=== PATIENT | male | born 1995 | race Caucasian/White ===

== ENCOUNTER 2019-12-21 05:16 | Emergency (ER) | payer BC ==
--- NOTE | 2019-12-21 06:01 | EDM.PDOC ---
ED HPI GENERAL MEDICAL PROBLEM - General Chief Complaint: ENT Problem Stated Complaint: DIFFICULTY SWALLOWING Time Seen by Provider: 12/21/19 05:51 Source of Information: Reports: Patient History Limitations: Reports: No Limitations - History of Present Illness INITIAL COMMENTS - FREE TEXT/NARRATIVE: Mr. Curiel is a pleasant 24-year-old man with no chronic medical problems and no past surgical history, who states that he woke this morning with the sensation of a lump in his throat, difficulty swallowing, and shortness of breath, following an episode of dry heaves last night. No prior similar symptoms. No recent illness, such as fever, chills, cough, chest pain, palpitations, constipation, diarrhea, or urinary symptoms. The patient did not take any [id number] home remedies prior to coming to the ED. Here in the ED, the patient's BP is found to be elevated at 181/111, and his oxygen saturation is noted to be 99-100% on room air. The patient's PCP is Digna Vasquez NP. He did not receive an influenza vaccine this season, but agreed to receive one here today. Throat Pain Score (Numeric/FACES): 5 - Related Data Allergies Allergy/AdvReac Type Severity Reaction Status Date / Time amoxicillin Allergy Cardiac Verified 12/21/19 05:30 Arrest Home Meds: Home Meds . [No Known Home Meds] 12/21/19 [History] Past Medical History - Past Health History Medical/Surgical History: Denies Medical/Surgical History Social & Family History - Tobacco Use Smoking Status *Q: Former Smoker Tobacco Use Within Last Twelve Months: Smokeless Tobacco (Quit 1 can/day sep 2019) Years of Tobacco use: 6 Packs/Tins Daily: 0.5 Month/Year Tobacco Last Used: Quit Jul 2019 - Caffeine Use Caffeine Use: Reports: Coffee - Alcohol Use Alcohol Use History: Yes Alcohol Use Frequency: Socially (occasionally to excess) - Recreational Drug Use Recreational Drug Use: Yes Drug Use in Last 12 Months: No Recreational Drug Type: Reports: Marijuana/Hashish (last smoked 2017) - Living Situation & Occupation Living situation: Reports: Single, with Family Occupation: Employed ([employer]) ED ROS ENT - Review of Systems Review Of Systems: Comprehensive ROS is negative, except as noted in HPI. ED EXAM, ENT - Physical Exam Exam: See Below Exam Limited By: No Limitations General Appearance: Alert, WD/WN, No Apparent Distress Eye Exam: Bilateral Eye: EOMI, Normal Inspection Ears: Normal External Exam, Normal Canal, Hearing Grossly Normal, Normal TMs Nose: Normal Inspection, Normal Mucousa, No Blood Mouth/Throat: Normal Inspection, Normal Gums, Normal Lips, Normal Oropharynx, Normal Teeth. No: Hoarse Voice, Pharyngeal Erythema, Throat Swelling, Tongue Swelling, Tonsillar Erythema, Tonsillar Exudates, Tonsillar Swelling, Uvular Deviation, Uvular Edema Head: Atraumatic, Normocephalic Neck: Normal Inspection, Supple, Non-Tender, Full Range of Motion. No: Lymphadenopathy (L), Lymphadenopathy (R) Course - Vital Signs Last Recorded V/S: Last Vital Signs Temp 36.2 C 12/21/19 05:27 Pulse 79 12/21/19 05:27 Resp 16 12/21/19 05:27 BP 147/89 H 12/21/19 07:07 Pulse Ox 99 12/21/19 05:27 - Orders/Labs/Meds Orders: Active Orders 24 hr Category Date Time Status Influenza Vaccine Charge [RC] .DISCHARGE Care 12/21/19 06:00 Active CULTURE STREP A CONFIRMATION [] Stat Lab 12/21/19 05:58 Results STREP SCRN A RAPID W CULT CONF [RM] Stat Lab 12/21/19 05:58 Results Meds: Medications Discontinued Medications Generic Name Dose Route Start Last Admin Trade Name Lorenzo PRN Reason Stop Dose Admin Influenza Virus Vaccine 60 mcg 12/21/19 06:15 12/21/19 06:40 Fluzone Quad [id number] Syringe IM 12/21/19 06:16 60 mcg .ONCE ONE Administration - Re-Assessments/Exams Free Text/Narrative Re-Assessment/Exam: 12/21/19 06:00 No abnormalities were found on ENT exam, however, I swabbed the patient's tonsils for strep. 12/21/19 07:08 Test results discussed with the patient. His rapid strep test has returned negative. I cannot account for the patient's symptoms, since his physical exam is completely normal. It may be due to anxiety, however, I am recommending that if his symptoms persist, that he follow-up with ENT. The patient will be given an influenza vaccine prior to discharge. Departure - Departure Time of Disposition: 07:09 Disposition: Home, Self-Care 01 Condition: Good Clinical Impression: Sensation of lump in throat - Discharge Information *PRESCRIPTION DRUG MONITORING PROGRAM REVIEWED*: Not Applicable *COPY OF PRESCRIPTION DRUG MONITORING REPORT IN PATIENT RADHA: Not Applicable Referrals: Digna Vasquez NP [Primary Care Provider] - Rashel Fleming MD [Ordering Only Provider] - Forms: ED Department Discharge Additional Instructions: You were seen in the emergency room after waking up with a sensation of a lump in her throat, difficulty swallowing, and shortness of breath, associated with dry heaves. Workup in the ER included a rapid strep test, which returned negative. You do not have strep throat. Your physical exam was unremarkable. No physical abnormalities were found. The cause of your symptoms is unclear. If your symptoms persist, we recommend that you follow-up with the ENT Dr. Rashel Fleming, in [place]. If any other problems, please do not hesitate to return to the ER. *You were given an influenza vaccine during your ER visit.* Sepsis Event Note - Evaluation Sepsis Screening Result: No Definite Risk - Focused Exam Vital Signs: Vital Signs Temp Pulse Resp BP Pulse Ox 12/21/19 07:07 147/89 H 12/21/19 05:27 36.2 C 79 16 181/111 H 99 Date Exam was Performed: 12/21/19 Time Exam was Performed: 07:08 - My Orders Last 24 Hours: My Active Orders 12/21/19 05:58 CULTURE STREP A CONFIRMATION [RM] Stat STREP SCRN A RAPID W CULT CONF [RM] Stat 12/21/19 06:00 Influenza Vaccine Charge [RC] .DISCHARGE - Assessment/Plan Last 24 Hours: My Active Orders 12/21/19 05:58 CULTURE STREP A CONFIRMATION [RM] Stat STREP SCRN A RAPID W CULT CONF [RM] Stat 12/21/19 06:00 Influenza Vaccine Charge [RC] .DISCHARGE
[2019-12-21] MEDS ORDERED: FLU Vacc QS2019-20(6MOS+)/PF 60 MCG/0.5 ML SYRINGE IM ONE (06:15)
== END 2019-12-21 07:18 | disposition home or self-care (01) ==
LOC: JD.ED 05:16
DX: R09.89 Other specified symptoms and signs involving the circulatory and respiratory systems (principal); Z23 Encounter for immunization; Z88.1 Allergy status to other antibiotic agents; Z87.891 Personal history of nicotine dependence
CPT/HCPCS: 87081; 87430; 90686; 99281; 99284-25; G0008

== ENCOUNTER 2020-02-28 17:19 | Emergency (ER) | payer BC ==
[2020-02-28] MEDS ORDERED: Diphtheria,Pertussis(Acell),Tetanus Vaccine 0.5 ML Syringe IM ONE (17:37)
[2020-02-28] MEDS ORDERED: Levofloxacin 750 MG Tab PO ONE (17:38)
--- NOTE | 2020-02-28 17:44 | EDM.PDOC ---
ED HPI GENERAL MEDICAL PROBLEM - General Chief Complaint: Lower Extremity Injury/Pain Stated Complaint: STEPPED ON A JORDAN NAIL Time Seen by Provider: 02/28/20 17:27 Source of Information: Reports: Patient, RN Notes Reviewed History Limitations: Reports: No Limitations - History of Present Illness INITIAL COMMENTS - FREE TEXT/NARRATIVE: Patient is a 24-year-old male who presents to the ED for the evaluation of stepping on a nail. Patient states that shortly prior to arrival to the ER visit, he stepped on a jordan nail while he was working in his garage. This resulted in a small puncture wound to the plantar aspect of the 1st MCP of the left foot. The patient states that he did take his boot off after he stepped on the nail, and soaked his foot with an Epsom salt bath. There is no obvious bleeding at this time. Patient and mother were not sure when his last tetanus booster was. Left Foot Pain Score (Numeric/FACES): 0 - Related Data Allergies Allergy/AdvReac Type Severity Reaction Status Date / Time amoxicillin Allergy Cardiac Verified 02/28/20 17:28 Arrest succinylcholine Allergy Cannot Verified 02/28/20 17:28 Remember Home Meds: Home Meds . [No Known Home Meds] 12/21/19 [History] Past Medical History - Past Health History Medical/Surgical History: Denies Medical/Surgical History Social & Family History - Tobacco Use Smoking Status *Q: Current Every Day Smoker Years of Tobacco use: 2 Packs/Tins Daily: 0.1 - Caffeine Use Caffeine Use: Reports: Coffee, Soda - Recreational Drug Use Recreational Drug Use: No - Living Situation & Occupation Living situation: Reports: Single, with Family Occupation: Employed ([employer]) Review of Systems - Review of Systems Review Of Systems: Comprehensive ROS is negative, except as noted in HPI. ED EXAM, GENERAL - Physical Exam Exam: See Below Exam Limited By: No Limitations General Appearance: Alert, WD/WN, No Apparent Distress Respiratory/Chest: No Respiratory Distress, Lungs Clear, Normal Breath Sounds, No Accessory Muscle Use, Chest Non-Tender Cardiovascular: Normal Peripheral Pulses, Regular Rate, Rhythm, No Murmur Peripheral Pulses: 3+: Dorsalis Pedis (L), Dorsalis Pedis (R) Extremities: Normal Range of Motion, Normal Capillary Refill Skin Exam: Warm, Dry, Normal Color, No Rash, Wound/Incision (small puncture wound to L plantar aspect of the 1st MCP, no active bleeding, it doesn't appear if the nail went in very far, no obvious foreign body is felt, the patient states that the nail was intact.) Course - Vital Signs Last Recorded V/S: Last Vital Signs Temp 98.1 F 02/28/20 17:25 Pulse 96 02/28/20 17:25 Resp 18 02/28/20 17:25 BP 163/97 H 02/28/20 17:25 Pulse Ox 95 02/28/20 17:25 - Orders/Labs/Meds Orders: Active Orders 24 hr Category Date Time Status Vaccines to be Administered [RC] PER UNIT ROUTINE Care 02/28/20 17:37 Ordered Diphth,Pertuss(Acell),Tet Vac [Adacel] Med 02/28/20 17:37 Once 0.5 ml IM .ONCE ONE levoFLOXacin [Levaquin] Med 02/28/20 17:38 Once 750 mg PO ONETIME ONE Medication Orders Diphtheria/Tetanus/Acell Pertussis (Adacel) 0.5 ml IM .ONCE ONE Stop: 02/28/20 17:38 Levofloxacin (Levaquin) 750 mg PO ONETIME ONE Stop: 02/28/20 17:39 Meds: Medications Generic Name Dose Route Start Last Admin Trade Name Freq PRN Reason Stop Dose Admin Diphtheria/Tetanus/Acell Pertussis 0.5 ml 02/28/20 17:37 Adacel IM 02/28/20 17:38 .ONCE ONE Levofloxacin 750 mg 02/28/20 17:38 Levaquin PO 02/28/20 17:39 ONETIME ONE - Re-Assessments/Exams Free Text/Narrative Re-Assessment/Exam: 02/28/20 17:43 Patient presents to the ED for the evaluation of his puncture wound. I will update his tetanus booster and start him on levofloxacin 750mg prophylaxis as the nail penetrated his cowboy boot and then punctured his foot. Departure - Departure Time of Disposition: 17:44 Disposition: Home, Self-Care 01 Condition: Good Clinical Impression: Puncture wound of skin from metal nail - Discharge Information *PRESCRIPTION DRUG MONITORING PROGRAM REVIEWED*: No *COPY OF PRESCRIPTION DRUG MONITORING REPORT IN PATIENT RADHA: No Referrals: PCP,None [Primary Care Provider] - Additional Instructions: You were evaluated in the ER today for your puncture wound in your Left foot. Your tetanus booster was updated at today's visit, and you will need to complete a course of antibiotics, and the nail went through your boot, and then punctured your foot. You have been given your first dose in the ED today, levofloxacin (Levaquin) 750mg. Dosing will be 1 tab daily x 7 days. Please keep the area clean and dry as possible to prevent further infection. Please return to the ED if your symptoms change or worsen. Sepsis Event Note - Evaluation Sepsis Screening Result: No Definite Risk - Focused Exam Vital Signs: Vital Signs Temp Pulse Resp BP Pulse Ox 02/28/20 17:25 98.1 F 96 18 163/97 H 95 Date Exam was Performed: 02/28/20 Time Exam was Performed: 17:39 - My Orders Last 24 Hours: My Active Orders 02/28/20 17:37 Vaccines to be Administered [RC] PER UNIT ROUTINE Diphth,Pertuss(Acell),Tet Vac [Adacel] 0.5 ml IM .ONCE ONE 02/28/20 17:38 levoFLOXacin [Levaquin] 750 mg PO ONETIME ONE - Assessment/Plan Last 24 Hours: My Active Orders 02/28/20 17:37 Vaccines to be Administered [RC] PER UNIT ROUTINE Diphth,Pertuss(Acell),Tet Vac [Adacel] 0.5 ml IM .ONCE ONE 02/28/20 17:38 levoFLOXacin [Levaquin] 750 mg PO ONETIME ONE
== END 2020-02-28 18:05 | disposition home or self-care (01) ==
LOC: JD.ED 17:19
DX: S91.332A Puncture wound without foreign body, left foot, initial encounter (principal); F17.210 Nicotine dependence, cigarettes, uncomplicated; Z23 Encounter for immunization; Z88.1 Allergy status to other antibiotic agents; Z88.8 Allergy status to other drugs, medicaments and biological substances; W45.0XXA Nail entering through skin, initial encounter
CPT/HCPCS: 90471; 90715; 99283; A9270

== ENCOUNTER 2020-05-30 07:10 | Emergency (ER) | payer BC ==
--- NOTE | 2020-05-30 07:37 | EDM.PDOC ---
ED HPI GENERAL MEDICAL PROBLEM - General Chief Complaint: General Stated Complaint: DIZZY/BLOOD IN MUCUS Time Seen by Provider: 05/30/20 07:30 Source of Information: Reports: Patient History Limitations: Reports: No Limitations - History of Present Illness INITIAL COMMENTS - FREE TEXT/NARRATIVE: 24-year-old male presents to the ED for evaluation of recurrent facial pain associated with some dizziness which I interpreted as vertigo symptoms. He has had symptoms off and on for the last week. Is also appreciated some mild blood when he blows his nose and the nasal mucus. Feels congested plugged up in the nose and intermittently in the ears. Does not recall waking up in the morning with a sore throat. He is never had significant problems with seasonal allergies in the past but is currently working outside the summer. Denies cough or sputum production or wheezing. No similar previous problems. At present he does not have any dizziness or vertigo symptoms. Describes pressure in his facial cheeks and under his eyes. He has been taking Claritin 10 mg once daily. Onset: Gradual Onset Date: 05/22/20 Duration: Day(s):, Getting Worse Location: Reports: Face (Nasal congestion pressure in the facial cheeks and under the eyes.) Quality: Reports: Ache, Other Severity: Moderate (Mild vertigo symptoms intermittently) Improves with: Reports: None Worsens with: Reports: Other (Work related activities. In the [employer]) Context: Denies: Activity ( and outside most of the day), Exercise, Lifting, Sick Contact, Trauma, Other Associated Symptoms: Reports: Headaches, Loss of Appetite. 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: Other (see below) (None.) - Related Data Allergies Allergy/AdvReac Type Severity Reaction Status Date / Time amoxicillin Allergy Cardiac Verified 05/30/20 07:23 Arrest succinylcholine Allergy Cannot Verified 05/30/20 07:23 Remember Home Meds: Home Meds Doxycycline [Vibra-Tabs] 100 mg PO Q12HR #20 tab 05/30/20 [Rx] Past Medical History - Past Health History Medical/Surgical History: Denies Medical/Surgical History Social & Family History - Tobacco Use Smoking Status *Q: Former Smoker Used Tobacco, but Quit: Yes Month/Year Tobacco Last Used: December 2019 - Caffeine Use Caffeine Use: Reports: Coffee, Soda - Living Situation & Occupation Living situation: Reports: Single, with Family Occupation: Employed ([employer]) ED ROS GENERAL - Review of Systems Review Of Systems: See Below Constitutional: Reports: Decreased Appetite. Denies: Fever, Chills, Malaise, Weakness, Fatigue, Weight Loss HEENT: Reports: Hearing Loss, Rhinitis (Sinus drainage nasal congestion), Sinus Problem. Denies: Ear Pain Respiratory: Reports: No Symptoms (Whacking noise in ears sometimes) Cardiovascular: Reports: No Symptoms Endocrine: Reports: No Symptoms GI/Abdominal: Reports: No Symptoms : Reports: No Symptoms Musculoskeletal: Reports: No Symptoms Skin: Reports: No Symptoms Neurological: Reports: No Symptoms Psychiatric: Reports: No Symptoms Hematologic/Lymphatic: Reports: No Symptoms ED EXAM, GENERAL - Physical Exam Exam: See Below Exam Limited By: No Limitations General Appearance: Alert, WD/WN, No Apparent Distress, Other (Temperature is 36.0 pulse is 65 and sinus respiratory 16 pulse oximetry is 97% room air BP elevated 157/98.) Eye Exam: Bilateral Eye: Normal Inspection, Periorbital Changes Ears: Normal TMs Nose: Nasal Swelling (But it swelling moderate over the middle and superior turbinates bilaterally no nasal polyps noted. Blood vessels on the nasal septum bilaterally are very prominent and there has been some bleeding from both anterior nasal septum's.) Throat/Mouth: Normal Inspection, Normal Lips, Normal Teeth, Normal Oropharynx Head: Atraumatic, Normocephalic Neck: Normal Inspection, Supple, Non-Tender, Full Range of Motion, Lymphadenopathy (L). No: Lymphadenopathy (R) (Normal.), Tender Lateral, Tender Midline, Thyromegaly Respiratory/Chest: No Respiratory Distress, Lungs Clear, Normal Breath Sounds, No Accessory Muscle Use. No: Wheezing Cardiovascular: Normal Peripheral Pulses, Regular Rate, Rhythm, No Edema, No Gallop, No Murmur, No Rub Peripheral Pulses: 3+: Carotid (L), Carotid (R) Extremities: Normal Inspection, Normal Range of Motion, Non-Tender Neurological: Alert, Oriented, CN II-XII Intact, Normal Cognition, Normal Gait Psychiatric: Normal Affect, Normal Mood Skin Exam: Warm, Dry, Intact, Normal Color, No Rash Course - Vital Signs Last Recorded V/S: Last Vital Signs Temp 36.0 C L 05/30/20 07:20 Pulse 65 05/30/20 07:20 Resp 16 05/30/20 07:20 BP 157/98 H 05/30/20 07:20 Pulse Ox 97 05/30/20 07:20 - Radiology Interpretation Free Text/Narrative:: 24-year-old male attends the ED due to intermittent problems with vertigo and facial pain/headache. Clinically the patient is suffering from allergic rhinitis with secondary sinus infection primarily involving the maxillary's and ethmoids perhaps frontals. On the right side as compared to the left. Not exhibiting any vertigo symptoms today. Exam reveals swelling of the superior and middle turbinates of the nasal cavity bilaterally. Prominent vessels on the surface with intermittent bleeding due to inflammation. Ear exam is normal. Oropharynx is normal. Chest is clear. Plan suggest Xyzal 1 tablet once daily. May have to use Nasacort AQ if nasal symptoms persist. Placed on doxycycline 100 mg twice daily for the next 10 days to clear up sinus infection. Follow-up with personal care provider if not markedly improved in 10 to 12 days time. Unfortunately this is going to be a very high pollen count year. Departure - Departure Time of Disposition: 07:37 Disposition: Home, Self-Care 01 Condition: Fair Clinical Impression: Acute bacterial sinusitis Allergic rhinitis due to allergen Qualifiers: Allergic rhinitis trigger: pollen Allergic rhinitis seasonality: seasonal Qualified Code(s): J30.1 - Allergic rhinitis due to pollen - Discharge Information *PRESCRIPTION DRUG MONITORING PROGRAM REVIEWED*: Not Applicable *COPY OF PRESCRIPTION DRUG MONITORING REPORT IN PATIENT RADHA: Not Applicable Prescriptions: Doxycycline [Vibra-Tabs] 100 mg PO Q12HR #20 tab Instructions: Sinusitis, Adult, [id number] Referrals: PCP,None [Primary Care Provider] - Forms: ED Department Discharge Additional Instructions: Evaluation in the emergency room today in regards to diffuse facial discomfort pressure to carry over the maxillary sinuses and undersurface of eyes. Ears feel mildly plugged at times. Appreciated intermittent blood in nasal mucus when you blow your nose. Examination reveals evidence of allergies causing inflammation of the nasal lining making the blood vessels very prominent on the surface and thus easy to break and bleed with blowing her nose. This appears to be secondary to environmental allergens likely the pollens from numerous grasses and weeds that are present in the environment right now. Ear exam is normal. Oropharynx is also normal. Clinically you have sinusitis secondary to developing allergic rhinitis symptoms. Nasal lining is markedly swollen and inflamed. Suggest switching your antihistamine to Xyzal 1 tablet daily which is [id number]. Sinus infection to be treated with doxycycline antibiotic 1 tablet twice daily for the next 10 days to help clear up infection. 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 Sepsis Event Note (ED) - Evaluation Sepsis Screening Result: No Definite Risk - Focused Exam Vital Signs: Vital Signs Temp Pulse Resp BP Pulse Ox 05/30/20 07:20 36.0 C L 65 16 157/98 H 97
== END 2020-05-30 07:50 | disposition home or self-care (01) ==
LOC: JD.ED 07:10
DX: J30.1 Allergic rhinitis due to pollen (principal); J01.90 Acute sinusitis, unspecified; B96.89 Other specified bacterial agents as the cause of diseases classified elsewhere; Z88.1 Allergy status to other antibiotic agents; Z88.4 Allergy status to anesthetic agent; Z87.891 Personal history of nicotine dependence
CPT/HCPCS: 99283

== ENCOUNTER 2022-03-21 15:14 | Emergency (ER) | payer BC | END 2022-03-21 16:02 | disposition home or self-care (01) | LOC: JD.ED 15:14 | DX: F10.920 Alcohol use, unspecified with intoxication, uncomplicated (principal); F17.210 Nicotine dependence, cigarettes, uncomplicated; Z88.0 Allergy status to penicillin; Z88.4 Allergy status to anesthetic agent | CPT/HCPCS: 99282; 99283 ==

== ENCOUNTER 2022-06-12 09:34 | Emergency (ER) | payer BC | END 2022-06-12 11:11 | disposition home or self-care (01) | LOC: JD.ED 09:34 | DX: S02.2XXA Fracture of nasal bones, initial encounter for closed fracture (principal); S02.40DA Maxillary fracture, left side, initial encounter for closed fracture; S02.32XA Fracture of orbital floor, left side, initial encounter for closed fracture; H11.32 Conjunctival hemorrhage, left eye; Z88.0 Allergy status to penicillin; Z88.8 Allergy status to other drugs, medicaments and biological substances; Y04.0XXA Assault by unarmed brawl or fight, initial encounter | CPT/HCPCS: 70486; 70486-26; 99283 ==

== ENCOUNTER 2022-06-30 23:03 | Emergency (ER) | payer BC | END 2022-07-01 01:19 | LOC: JD.ED 23:03 | DX: F10.129 Alcohol abuse with intoxication, unspecified (principal); Z86.16 Personal history of COVID-19; Z88.0 Allergy status to penicillin; Z88.8 Allergy status to other drugs, medicaments and biological substances | CPT/HCPCS: 99284 ==

== ENCOUNTER 2022-10-19 16:06 | Emergency (ER) | payer SELFPAY ==
[2022-10-19] MEDS ORDERED: LORazepam 1 MG Tab PO ONE (17:38)
== END 2022-10-19 18:24 | disposition home or self-care (01) ==
LOC: JD.ED 16:06
DX: F41.0 Panic disorder [episodic paroxysmal anxiety] (principal); Z72.0 Tobacco use; Z88.0 Allergy status to penicillin; Z88.4 Allergy status to anesthetic agent; Z86.16 Personal history of COVID-19
CPT/HCPCS: 99284; A9270